=== PATIENT | female | born 1985 | race Caucasian/White ===

== ENCOUNTER → 2016-08-29 | Outpatient (CLI) | payer OTHER | LOC: CIMAGING 08:38 | DX: E04.1 Nontoxic single thyroid nodule (principal); E06.3 Autoimmune thyroiditis | CPT/HCPCS: 76536-PO ==

== ENCOUNTER 2017-08-13 13:58 | Emergency (ER) | payer OTHER ==
--- NOTE | 2017-08-13 14:51 | EDPHY ---
H & P Time Seen by Provider: 08/13/17 14:50 HPI/ROS: Chief complaint. Possible miscarriage HPI. 32-year-old female 1 para 0, 6 weeks started having spotting yesterday. More bleeding today. Low abdominal cramping. Filled 1 pad in an hour but otherwise bleeding has somewhat slowed down. No low back pain. Patient thinks she is Rh negative. Otherwise no fever, urinary symptoms , chest discomfort or trouble breathing. ROS Constitutional. no fever/chills, no weakness Eyes. no problems with vision ENT. no sore throat, no nasal drainage Cardiovascular. no chest pain Respiratory. no shortness of breath, no cough Abdominal. Low abdominal cramping and vaginal bleeding . no problems urinating MS. no calf pain/swelling, no neck/back pain, no joint pain Skin. no rash Lymph. no swollen glands Neuro. no headache, no dizziness, no difficulty walking or with speech Past Medical/Surgical History: Healthy Social History: , nonsmoker, no alcohol Smoking Status: Never smoked Physical Exam: General Appearance: Alert pleasant well-developed female mild distress vital signs are stable Eyes: Pupils equal and round no pallor or injection. ENT, Mouth: Mucous membranes are moist. Respiratory: There are no retractions, lungs are clear to auscultation. Cardiovascular: Regular rate and rhythm. Gastrointestinal: Abdomen is soft with suprapubic tenderness. No masses. Normal bowel sounds Neurological: Awake and alert, sensory and motor exams grossly normal. Skin: Warm and dry, no rashes. Musculoskeletal: Neck is supple nontender. Extremities symmetrical, full range of motion. Psychiatric: Patient is oriented X 3, there is no agitation. Constitutional: Initial Vital Signs Temperature (C) 37.4 C 08/13/17 14:01 Heart Rate 72 08/13/17 14:01 Respiratory Rate 18 08/13/17 14:01 Blood Pressure 127/82 H 08/13/17 14:01 O2 Sat (%) 100 08/13/17 14:01 O2 Delivery Mode Room Air Allergies/Adverse Reactions: No Known Allergies Allergy (Unverified 08/13/17 14:00) Medical Decision Making - Diagnostics Imaging Results: Imaging Impressions Obstetrics Ultrasound 08/13/17 15:21 Impression: 1. Probable incomplete spontaneous , with saclike structure in the lower uterine segment. 2. No normal intrauterine gestational sac or pole noted. 3. Small amount of free fluid in the pelvis. 4. No ovarian torsion or definite adnexal masses. Findings and recommendations discussed with Emergency Department physician, Jitendra Valencia M.D., at 1707 hours, on August 13, 2017. Final report concurs with initial preliminary interpretation. Ultrasound of the pelvis shows a 5 x 2 mm in the lower uterine segment. There is no pole. Consistent with incomplete AB Procedures: IV normal saline Patient is given RhoGAM for Rh incompatibility. Patient is Rh negative ED Course/Re-evaluation: On re-evaluation the patient notes that after the ultrasound she went to the bathroom and passed what is likely was the . It was somewhat of a gelatinous clot. She no longer has any cramping or discomfort. Decreased vaginal bleeding The patient, her , and I discussed imaging and lab results. We discussed treatment plan including need for RhoGAM as the patient has A negative blood type. We discussed criteria for return importance of follow-up and further evaluation. They expressed understanding and agreement Differential Diagnosis: I considered threatened miscarriage, incomplete miscarriage, complete miscarriage. I have also considered ectopic and Rh incompatible - Data Points Laboratory Results: Laboratory Results 08/13/17 14:15 08/13/17 14:15 08/13/17 08/13/17 08/13/17 14:15 14:15 14:15 WBC 6.92 10^3/uL 10^3/uL (3.80-9.50) RBC 4.35 10^6/uL 10^6/uL (4.18-5.33) Hgb 13.4 g/dL g/dL (12.6-16.3) Hct 39.3 % % (38.0-47.0) MCV 90.3 fL fL (81.5-99.8) MCH 30.8 pg pg (27.9-34.1) MCHC 34.1 g/dL g/dL (32.4-36.7) RDW 13.2 % % (11.5-15.2) Plt Count 235 10^3/uL 10^3/uL (150-400) MPV 10.5 fL fL (8.7-11.7) Neut % (Auto) 58.8 % % (39.3-74.2) Lymph % (Auto) 33.7 % % (15.0-45.0) Edgar % (Auto) 6.5 % % (4.5-13.0) Eos % (Auto) 0.3 % L % (0.6-7.6) Baso % (Auto) 0.4 % % (0.3-1.7) Nucleat RBC Rel Count 0.0 % % (0.0-0.2) Absolute Neuts (auto) 4.07 10^3/uL 10^3/uL (1.70-6.50) Absolute Lymphs (auto) 2.33 10^3/uL 10^3/uL (1.00-3.00) Absolute Monos (auto) 0.45 10^3/uL 10^3/uL (0.30-0.80) Absolute Eos (auto) 0.02 10^3/uL L 10^3/uL (0.03-0.40) Absolute Basos (auto) 0.03 10^3/uL 10^3/uL (0.02-0.10) Absolute Nucleated RBC 0.00 10^3/uL 10^3/uL (0-0.01) Immature Gran % 0.3 % % (0.0-1.1) Immature Gran # 0.02 10^3/uL 10^3/uL (0.00-0.10) Sodium Potassium Chloride Carbon Dioxide Anion Gap BUN Creatinine Estimated GFR Glucose Calcium Beta HCG, Quant Urine Color YELLOW Urine Appearance CLEAR Urine pH 5.0 (5.0-7.5) Ur Specific [place] 1.009 (1.002-1.030) Urine Protein NEGATIVE (NEGATIVE) Urine Ketones TRACE H (NEGATIVE) Urine Blood 2+ H (NEGATIVE) Urine Nitrate NEGATIVE (NEGATIVE) Urine Bilirubin NEGATIVE (NEGATIVE) Urine Urobilinogen NEGATIVE EU EU (0.2-1.0) Ur Leukocyte Esterase NEGATIVE (NEGATIVE) Urine RBC 10-15 /hpf H /hpf (0-3) Urine WBC 1-3 /hpf /hpf (0-3) Ur Epithelial Cells TRACE /lpf /lpf (NONE-1+) Urine Bacteria TRACE /hpf H /hpf (NONE SEEN) Urine Mucus TRACE /lpf /lpf (NONE-1+) Urine Glucose NEGATIVE (NEGATIVE) Patient ABO/Rh A NEGATIVE Antibody Screen NEGATIVE Bld Prod Order Rhogam Pending 08/13/17 14:15 WBC RBC Hgb Hct MCV MCH MCHC RDW Plt Count MPV Neut % (Auto) Lymph % (Auto) Edgar % (Auto) Eos % (Auto) Baso % (Auto) Nucleat RBC Rel Count Absolute Neuts (auto) Absolute Lymphs (auto) Absolute Monos (auto) Absolute Eos (auto) Absolute Basos (auto) Absolute Nucleated RBC Immature Gran % Immature Gran # Sodium 138 mEq/L mEq/L (135-145) Potassium 3.9 mEq/L mEq/L (3.5-5.2) Chloride 102 mEq/L mEq/L (97-110) Carbon Dioxide 25 mEq/l mEq/l (22-31) Anion Gap 11 mEq/L mEq/L (8-16) BUN 9 mg/dL mg/dL (7-23) Creatinine 0.6 mg/dL mg/dL (0.6-1.0) Estimated GFR > 60 Glucose 82 mg/dL mg/dL (70-100) Calcium 9.0 mg/dL mg/dL (8.5-10.4) Beta HCG, Quant 1012.80 mIU/mL H mIU/mL (0.00-4.83) Urine Color Urine Appearance Urine pH Ur Specific [place] Urine Protein Urine Ketones Urine Blood Urine Nitrate Urine Bilirubin Urine Urobilinogen Ur Leukocyte Esterase Urine RBC Urine WBC Ur Epithelial Cells Urine Bacteria Urine Mucus Urine Glucose Patient ABO/Rh Antibody Screen Bld Prod Order Rhogam Medications Given: Discontinued Medications Sodium Chloride (Ns) 1,000 mls @ 0 mls/hr IV EDNOW ONE; Wide Open PRN Reason: Protocol Stop: 08/13/17 15:22 Last Admin: 08/13/17 15:28 Dose: 1,000 mls Departure - Departure Disposition: Home, Routine, Self-Care Clinical Impression: Miscarriage Condition: Good Instructions: Miscarriage (ED) Additional Instructions: May use Tylenol or ibuprofen for discomfort Return for worsening pain, fever, worsening vaginal bleeding especially if soaking more than 1 pad per hour for 2-3 hours. No intercourse or tampons until bleeding has stopped. Re-evaluation by Gynecology in the next 3-4 days. Referrals: NONE *PRIMARY CARE P,. [Primary Care Provider] - As per Instructions Aston Mosqueda MD [Medical Doctor] - 2-3 days, call for appt.
[2017-08-13] MEDS ORDERED: NS 1,000 ML IV ONE (15:21)
[2017-08-13 15:26] LABS: PLATELET COUNT 235 10^3/uL (150-400)
[2017-08-13 17:53] VITALS: BP 106/79
== END 2017-08-13 17:56 | disposition home or self-care (01) ==
DX: O03.9 Complete or unspecified spontaneous abortion without complication (principal); E86.9 Volume depletion, unspecified; Z3A.01 Less than 8 weeks gestation of pregnancy